=== PATIENT | female | born 2000 | race Hispanic/Latino ===

== ENCOUNTER 2021-03-16 02:31 | Emergency (ER) | payer OTHER, MEDICAID, SELFPAY ==
[2021-03-16 02:43] VITALS: BP 137/90; PULSE 89; RESP 17; TEMP 36.4; O2SAT 98; BMI 41.3
--- NOTE | 2021-03-16 02:48 | DI.RAD.S_ITS ---
PROCEDURE: XR CHEST 1V INDICATIONS: chest pain TECHNIQUE: One view of the chest was acquired. COMPARISON: None. FINDINGS: Surgical changes and devices: None. Lungs and pleura: Lungs are clear. No pleural effusions or pneumothorax. Mediastinum: Mediastinal contours appear normal. Heart size is normal. Bones and chest wall: No suspicious bony lesions. Overlying soft tissues appear unremarkable. IMPRESSION: No acute cardiopulmonary disease process. Dictated by: Karis Howe MD, PhD on 03/16/2021 at 8:01 Approved by: Karis Howe MD, PhD on 03/16/2021 at 8:02
--- NOTE | 2021-03-16 02:49 | ED.BACK ---
HPI - Back Pain/Injury General Chief Complaint: Back Pain/Injury Stated Complaint: left shoulder blade hurts/hurts to breathe Time Seen by Provider: 03/16/21 02:43 Source: patient History of Present Illness HPI Narrative: Patient drove herself here from home. Complains of left scapular pain that started yesterday morning around 9:00 a.m., 18 hours ago. No known injuries. No rash. Has not taken Tylenol or ibuprofen. Did try some CBD oil. Did smoke marijuana as well. No relief. No known injury. No numbness tingling or weakness. There is no no no chest pain. It is medial left scapular paraspinous parathoracic muscle pain. Worsened with touching right shoulder with left hand. Worse with any movement of the left arm. Worse with coughing or deep breath as well. No dyspnea. Denies any history of blood clots in legs or lungs. No personal history of coronary disease or with brother sisters or parents.. Denies does not want a test. No calf pain. Patient states will need work note for today Related Data Previous Rx's Medication Instructions Recorded ibuprofen 800 mg PO Q8H PRN #20 tab 03/16/21 Allergies Allergy/AdvReac Type Severity Reaction Status Date / Time amoxicillin Allergy Rash Verified 03/16/21 02:43 Review of Systems Review of Systems Narrative: GENERAL: Denies chills, fatigue, malaise, fever, sweats. HEENT: Denies sinus pain, ear pain, sore throat RESPIRATORY: Denies dyspnea, cough CARDIOVASCULAR: Denies chest pain, palpitations GASTROINTESTINAL: Denies nausea, vomiting, abdominal pain : Denies dysuria, frequency, hematuria MUSCULOSKELETAL: Complaint muscle or bony pain SKIN: Denies rash, skin lesions NEUROLOGIC: Denies weakness, numbness ROS Unobtainable: All systems reviewed & are unremarkable except as noted in HPI and below Exam Narrative Exam Narrative: GENERAL: in no distress, not toxic not dyspneic HEAD: Normocephalic. EYES: Pupils equal round No scleral icterus. No injection no discharge ENT: Mucous membranes moist. NECK: Trachea midline. CARDIOVASCULAR: Regular rate and rhythm without murmurs RESPIRATORY: Clear to auscultation. Breath sounds equal bilaterally. No wheezes, rales, or rhonchi. GASTROINTESTINAL: Abdomen soft, non-tender EXTREMITIES: No gross deformities. BACK: There is reproducible muscle tightness and tenderness with light touch and deep palpation of the medial left scapula/paraspinous muscles. No midline tenderness or step-off. No rash. Increased pain with attempt of moving left arm, with touching left hand to right shoulder. As well as raising hand above her head. Worse with coughing or deep breath. NEURO: AOx4. SKIN: Warm and dry PSYCH: Not anxious, is cooperative Initial Vital Signs Initial Vital Signs: Vital Signs Temperature 97.5 F L 03/16/21 02:43 Pulse Rate 89 03/16/21 02:43 Respiratory Rate 17 03/16/21 02:43 Blood Pressure 137/90 03/16/21 02:43 Pulse Oximetry 98 03/16/21 02:43 Course Course Course Narrative: No developed chest pain here. Feeling better after Toradol. Orders Ordered: ED Orders 03/16/21 02:48 XR chest 1V Stat Discontinued Medications Ketorolac Tromethamine (Ketorolac 30 Mg/Ml Vial) 30 mg IM NOW ONE Stop: 03/16/21 02:49 Last Admin: 03/16/21 02:56 Dose: 30 mg Documented by: Reevaluation(s) Reevaluation #1: Patient states Toradol has helped intrascapular left-sided pain. No chest pain. Reviewed x-ray with patient. Understands likely spasm strain of the muscle. Agrees with discharge home and follow-up Time: 03:34 Vital Signs Vital signs: Vital Signs - 8 hr 03/16/21 02:43 Temperature 97.5 F L Pulse Rate 89 Respiratory Rate 17 Blood Pressure 137/90 Pulse Oximetry 98 MDM - Back Pain/Injury Differential Diagnosis Differential diagnosis: Likely thoracic back pain and other (Muscle strain) Imaging Data Chest x-ray: Radiologist's Impression: X-ray reading by overnight radiologist impression no acute process MDM Narrative Medical decision making narrative: Appropriate for discharge home. Vital signs reviewed. Reassuring not pulmonary embolism. Lower risk factors for PE. No EKG at this time. No chest pain no dyspnea, has reproducible left scapular pain/tenderness. No hypoxia. Low heart risk factors. Discharge Plan Departure Patient Disposition: Home Clinical Impression: Acute back pain Qualifiers: Back pain location: thoracic back pain Back pain laterality: left Qualified Code(s): M54.6 - Pain in thoracic spine Instructions: DI for Back Spasm Activity Restrictions/Additional Instructions: Return if worse if any questions concerns. May continue warm pads to the shoulder blade area 20 minutes at a time for pain and spasm. Continue ibuprofen for pain. See family doctor within a week for recheck. Primary care office referral provided for you. Prescriptions: New ibuprofen 800 mg tablet 800 mg PO Q8H PRN (Reason: pain) Qty: 20 RF: 0 Referrals: [facility] [Outside] Stand Alone Forms: Work Release Note
[2021-03-16] MEDS: KETOROLAC 30 MG/ML VIAL IM (02:56)
[2021-03-16 03:36] VITALS: BP 141/63; PULSE 83; RESP 20; O2SAT 96
== END 2021-03-16 03:37 | disposition home or self-care (01) ==
PROVIDERS: Emergency Provider Emergency Medicine
DX: M54.6 Pain in thoracic spine (principal); M25.512 Pain in left shoulder; R07.9 Chest pain, unspecified
CPT/HCPCS: 71045; 96372; 99283; J1885

== ENCOUNTER → 2022-10-06 18:38 | Outpatient (CLI) | payer OTHER, MEDICAID, SELFPAY | PROVIDERS: Visit Provider Physician Assistant | DX: R30.0 Dysuria (principal) | CPT/HCPCS: 81002; 87077; 87086; 87186 ==

== ENCOUNTER 2022-10-10 14:24 | Emergency (ER) | payer OTHER, MEDICAID, SELFPAY ==
[2022-10-10 14:46] VITALS: BP 143/98; PULSE 110; RESP 18; TEMP 36.8; O2SAT 97; BMI 42.2
--- NOTE | 2022-10-10 15:53 | DI.US.S_ITS ---
PROCEDURE: US OB LIMITED INDICATIONS: TRAUMA OUTSIDE/PRIOR DATING DATA: Last menstrual period (LMP): June 21, 2022. LMP-based estimated date of delivery (EVRITO): March 28, 2023. First dating scan (date and location): October 02, 2022, [facility] digital imaging TECHNIQUE: Real-time scanning was performed of the fetus, with image documentation and biometric measurements. Biophysical profile was also obtained. COMPARISON: [facility], US, US OB GROWTH, 10/02/2022, 9:48. FINDINGS: General: A single living intrauterine gestation is present. Presentation: Breech. Placenta: Placental position is posterior , without previa. Amniotic fluid index: 12.3 cm, normal range is 5-24 cm. Single deepest vertical pocket is 4.0 cm. heart rate: 152 beats per minute. Maternal cervical canal: 3.3 cm long. Normal lower limit is 2.5 cm. biometrics: Biparietal diameter: 2.8 cm, 15 weeks, 0 days Head circumference: 10.7 cm, 15 weeks, 1 day Abdominal circumference: 9.1 cm, 15 weeks, 2 days Femur length: 1.6 cm, 14 weeks, 5 days Clinically estimated gestational age: 15 weeks, 6 days Composite gestational age from present scan: 15 weeks, 0 days IMPRESSION: Single live intrauterine gestation with a composite gestational age of 15 weeks, 0 days which is concordant with dates by initial scan. No acute sonographic findings. No sonographic evidence for abruption. We strive to produce accurate, complete, and clear reports of imaging services. To assist us in improving patient care, this report was composed using standard report templates and voice recognition software. Therefore, it may contain abnormal punctuation, insertions and/or omissions. Occasional wrong-word or sound-alike substitutions may occur. Though we review the report and make efforts to correct it, we do recommend that the report be read carefully in proper context to recognize any text inaccuracies. Dictated by: Alyssa James M.D. on 10/10/2022 at 16:41 Approved by: Alyssa James M.D. on 10/10/2022 at 16:44
[2022-10-10 16:04] LABS: Amorphous Sediment Urine 1+; Bacteria Urine Few (2-10); Culture Indicated Urine Specimen Cultured; Mucus Urine 2+ (Negative); RBC Urine None Seen (0-5/HPF); Squamous Epithelial Cell Urine 0-1 /HPF (0-5/HPF); WBC Urine 5-10/HPF (0-5/HPF)
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
[2022-10-10] MEDS: ONDANSETRON 4 MG ODT SL (17:09)
[2022-10-10] MEDS: ACETAMINOPHEN 325 MG TABLET 975 MG PO (17:10)
[2022-10-10 17:15] VITALS: BP 110/78; PULSE 89; RESP 16; O2SAT 99
--- NOTE | 2022-10-10 17:18 | PC.NURSE ---
upon going over discharge instructions reiterated importance of her safety and that of her children. Reminded patient there are resources available if she needs them.
== END 2022-10-10 17:17 | disposition home or self-care (01) ==
PROVIDERS: Emergency Medicine; Emergency Provider Nurse Practitioner Critical Care Medicine
DX: S06.0X0A Concussion without loss of consciousness, initial encounter (principal); Y04.2XXA Assault by strike against or bumped into by another person, initial encounter; Z3A.15 15 weeks gestation of pregnancy; Z87.440 Personal history of urinary (tract) infections
CPT/HCPCS: 76815; 81003; 81015; 81025; 87086; 99283; 99284